=== PATIENT | female | born 1980 | race Caucasian/White ===

== ENCOUNTER 2024-02-15 23:44 | Emergency (ER) | payer MEDICAID, SELFPAY ==
[2024-02-15 23:50] VITALS: BP 127/83; PULSE 115; RESP 18; TEMP 36.7; O2SAT 97; BMI 25.0
--- NOTE | 2024-02-16 00:11 | HMH.EDGENADL ---
Discharge Plan Disposition Patient Disposition: Home, Self-Care Prescriptions Prescriptions: New methocarbamol 500 mg tablet 500 mg PO Q6H PRN (Reason: pain) Qty: 30 0RF lidocaine 5 % adhesive patch,medicated 1 patch topical DAILY PRN (Reason: pain) Qty: 30 0RF Rx Instructions: leave on most painful area for up to 12 hrs Referrals Follow up/Referrals: Provider,Referral, MD [Primary Care Provider] - See instructions Activity Restrictions/Add. Instructions Additional Instructions/Restrictions: Recommend taking 1 g Tylenol and 600 mg ibuprofen every 6 hours as needed for pain. Please use lidocaine patches and Robaxin as prescribed as needed for pain. Recommend initiating bowel cleanout with MiraLAX and continued use enemas at home. Please follow-up with your primary care provider. Please return to the emergency department if you develop any new or worsening symptoms or become concerned for your health. Clinical Impressions Clinical Impression: Left leg pain Constipation Qualifiers: Constipation type: unspecified constipation type Qualified Code(s): K59.00 - Constipation, unspecified Discharge ED Provider: Nathaniel Mao Adult [facility] General Chief complaint: PAIN Stated complaint: pain left leg,cut right foot wont heal,constipated Time Seen by Provider: 02/15/24 23:55 Mode of Arrival: Ambulatory Source of Information: Patient Limitations: No Limitations Description of Symptoms (Recalled from ER Triage Doc. by RN): Pt presents to the ED with complaints of L sciatica pain, constipation, and a wound on her R heel. Pt is argumentative and doesn't like answering questions for this RN. Pt is A&O*4 History of Present Illness HPI narrative: 43-year-old female without reported past medical history presents with multiple complaints. She reports that she has been constipated and has not had a bowel movement the last 3 to 4 days. She has used an enema at home without success. She reports history of constipation. She is continue to pass a lot of gas. She also reports left leg pain. She reports history of sciatica, but this pain is more anterior lateral than normal for her sciatica. She denies any recent trauma or illness. She also complains of a cut on her left heel that will not heal after a pedicure she has been putting peroxide on it every day. 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 Related Data Previous Rx's Medication Instructions Recorded lidocaine 5 % topical patch 1 patch topical DAILY PRN pain #30 02/16/24 ea methocarbamol 500 mg tablet 500 mg PO Q6H PRN pain #30 tabs 02/16/24 Allergies Allergy/AdvReac Type Severity Reaction Status Date / Time From DEMEROL Allergy Intermediate I-HIVES Uncoded 11/16/17 14:59 [facility], [facility] Disclaimer: The information contained in this section may have been updated after the patient was seen, as this information can be updated by other users. Social History Smoking Status: Current every day smoker alcohol intake: never current occupational status: employed Travel in the last 8 weeks: None ROS Obtained: Yes All systems reviewed & no additional complaints except as documented Physical Exam General General appearance: alert Comment: Uncomfortable appearing, fidgeting in the bed Head Head exam: atraumatic and normocephalic Eye Eye exam: Present normal appearance, PERRL and EOMI ENT ENT exam: Present normal oropharynx and normal external ear exam Neck Neck exam: Present normal inspection and full ROM Chest Chest inspection: Present normal inspection and symmetric chest wall rise; Absent tenderness Respiratory Respiratory exam: Present normal lung sounds bilaterally; Absent respiratory distress Cardiovascular Cardiovascular exam: Present regular rate and normal rhythm Abdominal Exam Abdominal exam: Present soft and tenderness (Minimal, generalized); Absent distention or guarding Extremities Exam Extremities exam: Present normal inspection and tenderness (Mild tenderness in the mid left anterior lateral leg, no overlying skin changes. Intact distal sensation pulses, normal strength and sensation. Patient's right heel is dried with a crack,, no induration, no erythema, wound does not track deeply.) Back Exam Back exam: Present normal inspection; Absent tenderness Neurological Exam Neurological exam: Present alert and oriented X3; Absent motor sensory deficit Psychiatric Psychiatric exam: Present normal affect and normal mood Skin Skin exam: Present warm, dry and normal color Lymphatic Lymphatic Findings: no adenopathy Medical Decision Making Medical Records Medical records reviewed: Yes I reviewed the patient's medical records. Rui Inquiry Pt receiving controlled substance: No Rui was queried for this patient: No Vital Signs: 02/15/24 23:50 Temperature 98.1 F Temperature Source Oral Pulse Rate [Left] 115 H Respiratory Rate 18 Blood Pressure [Right Arm] 127/83 Blood Pressure Mean [Right Arm] 97 02 Sat by Pulse Oximetry 97 Oxygen Delivery Method Room Air Lab Data Lab results reviewed: Yes I reviewed the patient's lab results. Orders (Tests/Meds): ED MEDICATIONS Generic Name Dose Route Start Last Admin Trade Name Elle PRN Reason Stop Dose Admin Acetaminophen 1,000 mg 02/16/24 00:07 Acetaminophen 500mg Tab PO 02/16/24 00:08 ONCE ONE Ibuprofen 600 mg 02/16/24 00:07 Ibuprofen 600 Mg Tablet PO 02/16/24 00:08 ONCE ONE Lidocaine 1 each 02/16/24 00:07 Lidocaine 5% Transdermal Patch TP 02/16/24 00:08 ONCE ONE Methocarbamol 500 mg 02/16/24 00:07 Methocarbamol 500mg Tablet PO 02/16/24 00:08 ONCE ONE Medical Decision Narrative: 43-year-old female with reported history of constipation presents with multiple complaints including atraumatic left leg pain for the last couple of days, a skin crack on her right heel, constipation for the last several days. History was obtained interactive discussion with patient, family. On arrival, patient is [afebrile, hemodynamically stable, satting appropriately, alert, oriented x4, GCS 15], moving all extremities spontaneously. Full physical exam performed and significant for findings as documented above including benign abdominal exam, benign extremity exam Differential includes but is not limited to muscle spasm, bruise, sciatica, meralgia paresthetica, fracture, dislocation, cellulitis, abscess, constipation, bowel obstruction,. Patient was given 500 p.o. Robaxin, 1 g Tylenol, 600 ibuprofen, lidocaine patch for symptomatic management and correction of underlying abnormalities. Given patient history, exam and workup, patient's presentation most likely represents constipation and muscle spasm. Labs and imaging were considered, but given no history of trauma, no physical exam findings suggestive of emergent pathology in the extremities, and patient has a benign abdominal exam, I did not feel they were indicated at this time. I provided her with a bowel cleanout sheet and prescribed Robaxin and lidocaine patches and instructed to take Tylenol ibuprofen. Return precautions given. Patient discharged in stable condition.. Procedures Risk/Benefits of Procedure(s) Were Explained: Yes Critical Care Critical Care Time Critical Care Time: No
[2024-02-16] MEDS: LIDOCAINE 5% TRANSDERMAL PATCH 1 EACH TP (00:14)
[2024-02-16] MEDS: IBUPROFEN 600 MG TABLET PO (00:14)
[2024-02-16] MEDS: ACETAMINOPHEN 500MG TAB 1000 MG PO (00:14)
[2024-02-16] MEDS: METHOCARBAMOL 500MG TABLET 500 MG PO (00:14)
[2024-02-16 00:18] VITALS: BP 141/97; PULSE 100; RESP 18; TEMP 36.7; O2SAT 97
== END 2024-02-16 00:15 | disposition home or self-care (01) ==
LOC: ER 02-16 00:22
PROVIDERS: Emergency Provider Emergency Medicine
DX: M79.605 Pain in left leg (principal); S91.311A Laceration without foreign body, right foot, initial encounter; K59.00 Constipation, unspecified; M54.42 Lumbago with sciatica, left side; X58.XXXA Exposure to other specified factors, initial encounter; F17.200 Nicotine dependence, unspecified, uncomplicated
CPT/HCPCS: 99283

== ENCOUNTER 2024-10-15 15:36 | Emergency (ER) | payer MEDICAID, SELFPAY ==
[2024-10-15 16:43] VITALS: BP 130/70; PULSE 85; RESP 18; TEMP 36.8; O2SAT 100; BMI 23.6
--- NOTE | 2024-10-15 16:46 | XR_ITS ---
PROCEDURE INFORMATION: Exam: XR Chest Exam date and time: 10/15/2024 4:48 PM Age: 44 years old Clinical indication: Cough TECHNIQUE: Imaging protocol: Radiologic exam of the chest. Views: 1 view. COMPARISON: No relevant prior studies available. FINDINGS: Lungs: Unremarkable. No consolidation. Pleural spaces: Unremarkable. No pleural effusion. No pneumothorax. Heart/Mediastinum: Unremarkable. No cardiomegaly. Bones/joints: Unremarkable. IMPRESSION: No acute findings. No infiltration identified.
[2024-10-15 16:50] LABS: Coronavirus 19, PCR Not Detected (NotDetected); Influenza A, PCR Not Detected (NotDetected); Influenza B, PCR Not Detected (NotDetected)
--- NOTE | 2024-10-15 16:54 | PC.NURSE ---
XR AT BEDSIDE
--- NOTE | 2024-10-15 17:01 | PC.NURSE ---
DR CRAMER AT BEDSIDE
--- NOTE | 2024-10-15 17:26 | ED_ITS ---
Discharge Plan Disposition Chief Complaint: Upper Respiratory Infection Prescriptions Prescriptions: New prednisone 20 mg tablet 40 mg PO DAILY 5 Days Qty: 10 0RF methocarbamol 750 mg tablet 1,500 mg PO TID 5 Days Qty: 30 0RF amoxicillin-pot clavulanate 875-125 mg tablet 1 tab PO BID 5 Days Qty: 10 0RF No Action methocarbamol 500 mg tablet 500 mg PO Q6H PRN (Reason: pain) Qty: 30 0RF lidocaine 5 % adhesive patch,medicated 1 patch topical DAILY PRN (Reason: pain) Qty: 30 0RF Rx Instructions: leave on most painful area for up to 12 hrs Referrals Follow up/Referrals: Provider,Referral, MD [Primary Care Provider] - See instructions Activity Restrictions/Add. Instructions Additional Instructions/Restrictions: Call your family doctor to establish care for this visit to the emergency department and schedule follow-up within 48 hours to ensure improvement. If you have any worsening of your condition or any other concerning signs or symptoms, return to the emergency department or your primary care doctor for further evaluation. Antibiotic twice daily for 5 days, prednisone each morning for the next 5 days. Robaxin 3 times daily as needed for muscle spasms Clinical Impressions Clinical Impression: Right lower lobe pneumonia Print Language Print Language: Singaporean Discharge ED Provider: Gume Pabon General Adult HPI General Chief complaint: Upper Respiratory Infection Stated complaint: congestion body aches Time Seen by Provider: 10/15/24 16:45 Mode of Arrival: Ambulatory Source of Information: Patient Limitations: No Limitations Description of Symptoms (Recalled from ER Triage Doc. by RN): congestion,cough History of Present Illness HPI narrative: Please note that above description of symptoms, in this electronic medical record under categorization of recalled from ER triage doctor by RN are reflective of an initial nursing assessment, however, is not reflective of my full history and physical exam that was personally taken and clarified. Consequentially, this preceding description of symptoms, which may include the patient's categorized chief complaint in the EMR, do not reflect my personal clinical impression, and the ultimate description of history of present illness and patient stated complaints should be deferred to this section of the note. Unless stated otherwise or congruent with this section of the note, additional signs, symptoms, or incongruence should be interpreted as inaccurate with my clinical impression. Related Data Previous Rx's ?Medication ?Instructions ?Recorded lidocaine 5 % topical patch 1 patch topical DAILY PRN pain #30 02/16/24 ea methocarbamol 500 mg tablet 500 mg PO Q6H PRN pain #30 tabs 02/16/24 amoxicillin 875 mg-potassium 1 tab PO BID 5 days #10 tabs 10/15/24 clavulanate 125 mg tablet methocarbamol 750 mg tablet 1,500 mg (2 x 750 mg) PO TID 5 10/15/24 days #30 tabs prednisone 20 mg tablet 40 mg (2 x 20 mg) PO DAILY 5 days 10/15/24 #10 tabs Allergies Allergy/AdvReac Type Severity Reaction Status Date / Time From DEMEROL Allergy Intermediate I-HIVES Uncoded 11/16/17 14:59 [facility] Disclaimer: The information contained in this section may have been updated after the patient was seen, as this information can be updated by other users. Social History (Updated 02/16/24 @ 00:20 by Nathaniel Mao MD) Smoking Status: Current every day smoker alcohol intake: never current occupational status: employed Travel in the last 8 weeks: None ROS Obtained: Yes All systems reviewed & no additional complaints except as documented Physical Exam General General appearance: alert Head Head exam: atraumatic and normocephalic Eye Eye exam: Present normal appearance, PERRL and EOMI Neck Neck exam: Present normal inspection, full ROM and trachea midline Respiratory Respiratory exam: Present wheezes (Isolated wheeze in right lower lobe posteriorly); Absent respiratory distress, stridor, accessory muscle use or prolonged expiratory phase Cardiovascular Cardiovascular exam: Present other (Pulses equal symmetric in upper and lower extremities) Abdominal Exam Abdominal exam: Present soft; Absent distention, tenderness or pulsatile mass Extremities Exam Extremities exam: Absent edema Neurological Exam Neurological exam: Present alert, oriented X3 and CN II-XII intact; Absent motor sensory deficit Skin Skin exam: Present warm and dry; Absent diaphoresis or erythema Medical Decision Making Medical Records Medical records reviewed: Yes I reviewed the patient's medical records. Screening: Per USPSTF and CDC recommendations, given the prevalence of disease in our region, it is our hospital?s policy to screen for HIV and viral Hepatitis for all patients aged 18 and over and those with ongoing risk factors. Rui Inquiry Pt receiving controlled substance: No Rui was queried for this patient: No Vital Signs: 10/15/24 16:43 10/15/24 17:34 Temperature 98.3 F Temperature Source Oral Pulse Rate 74 Pulse Rate [Right] 85 Respiratory Rate 18 Blood Pressure 106/51 L Blood Pressure [Right Arm] 130/70 Blood Pressure Mean [Right Arm] 90 02 Sat by Pulse Oximetry 100 95 Oxygen Delivery Method Room Air Room Air Lab Data Lab Results 10/15/24 16:43: SARS-CoV-2 (PCR) Not detected, Influenza A Untype (PCR) Not detected, Influenza Type B (PCR) Not detected Orders (Tests/Meds): ED MEDICATIONS Discontinued Medications Generic Name Dose Route Start Last Admin Trade Name Freq PRN Reason Stop Dose Admin Amoxicillin/Clavulanate Potassium 1 each 10/15/24 17:27 10/15/24 17:35 Amoxicillin/Clavulanate Potassium 875/125mg Tablet PO 10/15/24 17:28 1 each ONCE ONE Administration Methocarbamol 1,500 mg 10/15/24 17:27 10/15/24 17:35 Methocarbamol 500mg Tablet PO 10/15/24 17:28 1,500 mg ONCE ONE Administration Prednisone 40 mg 10/15/24 17:27 10/15/24 17:35 Prednisone 20mg Tab PO 10/15/24 17:28 40 mg ONCE ONE Administration ORDERS Category Date Time Status Chest XR -- portable [XR chest portable] Stat Exams 10/15/24 16:46 Taken Rapid PCR Covid and Flu A/B Stat Lab 10/15/24 16:43 Completed Medical Decision Narrative: 44-year-old female smoking history presenting with cough and malaise. Patient states she has been sick with a cough for the past week. It is largely nonproductive, intermittently productive of thick, clear sputum. Also been having rhinorrhea. No fevers or chills, but general malaise. Today she started having posterior lower chest wall pain on the right associated with cough. Now having bodyaches, primarily on the right as well. No nausea, vomiting, objective fevers, vomiting, or any other concerns. History was obtained via conversation with patient. On arrival, patient hemodynamically stable, alert, oriented x4, appropriate, GCS 15, moving all extremities spontaneously, pupils equal and reactive to light. Full physical exam performed and significant for well-appearing woman who appears tired. Lungs are clear anteriorly, isolated wheezes right posterior/inferior lung zhu. Differential includes bronchitis, pneumonia, COPD exacerbation, among others. Patient placed on continuous cardiac monitoring and continuous pulse ox with initial blood pressure 130/70, heart rate 85, saturation percent on room air. On independent interpretation of imaging, no obvious consolidation Given patient presentation, workup, history, this most likely represents pneumonia. I feel this is likely an early pneumonia. Clinical course with nonproductive cough, newly productive cough with thick white sputum as well as worsening after about a week and isolated wheezing in right posterior inferior lobe. Given smoking history and isolated wheezing, prednisone, Augmentin sent to pharmacy. Patient was also given Robaxin to the pharmacy after having near complete resolution of symptoms here in the emergency department of muscle spasms in her right shoulder and back after receiving here. Because patient at baseline without signs or symptoms of clinical decompensation, deemed appropriate for discharge. Results were relayed to patient who voiced understanding and were agreeable to outpatient management and follow up. I discussed my clinical impression with patient and answered all questions. At this time, the evidence for any other entities in the differential is insufficient to warrant any further testing or ED observation. This was explained as well. Advisory was given that persistent or worsening symptoms require further evaluation. I confirmed the understanding of this discussion. Certified Pest Control Technician disclaimer Much of this encounter note is an electronic contour stitcher spoken language to printed text. Electronic contour stitcher of the spoken language may permit errors. Although I have reviewed the note, some errors may still exist. Critical Care Critical Care Time Critical Care Time: No
[2024-10-15 17:34] VITALS: BP 106/51; PULSE 74; O2SAT 95
[2024-10-15] MEDS: METHOCARBAMOL 500MG TABLET 1500 MG PO (17:35)
[2024-10-15] MEDS: predniSONE 20MG TAB 40 MG PO (17:35)
[2024-10-15] MEDS: AMOXICILLIN/CLAVULANATE POTASSIUM 875/125MG TABLET 1 EACH PO (17:35)
[2024-10-15 18:21] VITALS: BP 130/84; PULSE 91; RESP 18; TEMP 36.9; O2SAT 97
== END 2024-10-15 18:25 | disposition home or self-care (01) ==
PROVIDERS: Emergency Provider Emergency Medicine
DX: J18.9 Pneumonia, unspecified organism (principal); R09.81 Nasal congestion; R05.9 Cough, unspecified; M79.10 Myalgia, unspecified site; R07.89 Other chest pain
CPT/HCPCS: 71045; 87636; 99283